=== PATIENT | male | born 1985 | race Caucasian/White ===

== ENCOUNTER 2020-01-01 18:08 | Emergency (ER) | payer BC, SELFPAY ==
[~2020-01-01] VITALS: Ht 175.3 cm; Wt 158.8 kg
[2020-01-01 18:12] VITALS: BP 153/98; Ht 175.3 cm; Wt 158.8 kg
== END 2020-01-01 19:47 | disposition home or self-care (01) ==
LOC: ED 18:08
DX: J06.9 Acute upper respiratory infection, unspecified (principal); Z20.828 Contact with and (suspected) exposure to other viral communicable diseases; Z88.6 Allergy status to analgesic agent
CPT/HCPCS: U0003-CS